=== PATIENT | male | born 1975 | race Caucasian/White ===

== ENCOUNTER 2021-04-25 16:57 | Emergency (ER) | payer OTHER ==
[~2021-04-25] VITALS: Ht 182.9 cm; Wt 99.8 kg
--- NOTE | 2021-04-25 16:57 | NUR ---
PT BIBRA FROM THE BUS STOP C/O WEAKNESS/DIZZINESS AND LOW BP. PT IS AAOX4, NOT IN RESPIRATORY DISTRESS, HOOKED TO [employer], KEPT RESTED AND COMFORTABLE. WILL CONTINUE TO MONITOR.
--- NOTE | 2021-04-25 17:11 | NUR ---
SEEN AND EXAMINED BY .
--- NOTE | 2021-04-25 17:15 | NUR ---
PT IV LINE ESTABLISHED BLOOD DRAWN AND SENT TO LAB.
[2021-04-25 17:23] LABS: BASOPHILS # (AUTO) 0.1 K/uL (0.0-0.2); BASOPHILS % (AUTO) 0.7 % (0.0-2.0); EOSINOPHILS % (AUTO) 1.3 % (0.0-6.0); HEMATOCRIT 48 % (39-51); LYMPHOCYTES # (AUTO) 2.7 K/uL (0.8-4.8); LYMPHOCYTES % (AUTO) 27.4 % (20.0-44.0); MEAN CORPUSCULAR HGB CONC 34 g/dl (31.0-36.0); MEAN CORPUSCULAR VOLUME 87 fL (80-96); MONOCYTES # (AUTO) 0.4 K/uL (0.1-1.30); MONOCYTES % (AUTO) 4.2 % (2.0-12.0); NEUTROPHILS # (AUTO) 6.6 K/uL (1.8-8.9); NEUTROPHILS % (AUTO) 66.4 % (43.0-81.0); PLATELET COUNT (AUTO) 258 K/uL (150-450); RED BLOOD CELL COUNT(AUTO) 5.51 MIL/uL (4.5-6.0); WHITE BLOOD COUNT (AUTO) 9.9 K/uL (4.3-11.0)
[2021-04-25] MEDS ORDERED: IV NS 0.9% 1,000 ML BAG IV ONE (17:30)
[2021-04-25 17:31] LABS: CALCIUM, SERUM 9.4 mg/dL (8.5-10.1); CARBON DIOXIDE 18 mmol/L (21-32); CHLORIDE 105 mmol/L (98-107); CREATININE 1.3 mg/dL (0.6-1.3); GLUCOSE 172 mg/dL (74-106); POTASSIUM 3.2 mmol/L (3.5-5.1); SODIUM SERUM 141 mmol/L (136-145); UREA NITROGEN, BLOOD 12 mg/dL (7-18)
[2021-04-25 17:37] LABS: ALANINE AMINOTRANSFERASE 23 U/L (12-78); ALBUMIN 4.1 g/dL (3.4-5.0); ALKALINE PHOSPHATASE 73 U/L (46-116); ASPARTATE AMINOTRANSFERASE 15 U/L (15-37); BILIRUBIN,DIRECT 0.2 mg/dL (0.0-0.2); BILIRUBIN,TOTAL 1.1 mg/dL (0.2-1.0); TOTAL PROTEIN, SERUM 7.2 g/dL (6.4-8.2)
[2021-04-25] MEDS ORDERED: FLUO20CA42 PO (18:03)
[2021-04-25] MEDS ORDERED: RISP2TAB85 PO (18:03)
[2021-04-25] MEDS ORDERED: OXYB5TAB16 PO (18:03)
[2021-04-25] MEDS ORDERED: ROSU20TA32 PO (18:03)
--- NOTE | 2021-04-25 18:42 | NUR ---
PT ABLE TO AMBULATE WITHOUT ASSISSTANCE AND PER PT HE FEELS MUCH BETTER. ER AWARE.
--- NOTE | 2021-04-25 18:54 | NUR ---
IV removed. Catheter intact and site benign. Pressure and 4x4 applied to site. No bleeding noted. Patient discharged to home in stable condition. Written and verbal after care instructions given. Patient verbalizes understanding of instruction.
[2021-04-25 18:56] VITALS: BP 114/65
== END 2021-04-25 18:56 | disposition home or self-care (01) ==
LOC: ER 17:23
DX: I95.9 Hypotension, unspecified (principal); R00.0 Tachycardia, unspecified; F20.9 Schizophrenia, unspecified; F32.9 Major depressive disorder, single episode, unspecified; Z79.899 Other long term (current) drug therapy; Z20.822 Contact with and (suspected) exposure to COVID-19
CPT/HCPCS: 36415; 71045; 80048; 80076; 82962; 84484; 85025; 87081; 87426; 93005; 96360; 99285; C9803

== ENCOUNTER 2021-12-13 16:50 | Emergency (ER) | payer OTHER ==
[~2021-12-13] VITALS: Ht 182.9 cm; Wt 104.3 kg
[~2021-12-13 16:50] MED LIST: FLUO20CA42 PO; OXYB5TAB16 PO; RISP2TAB85 PO; ROSU20TA32 PO
--- NOTE | 2021-12-13 17:10 | NUR ---
JORJE ANTHONY "was in [employer] [place]- Got lightheaded, near syncope/dizzy". The patient is alert and oriented x4. Denies pain. In room air and denies SOB. Respiration regular and unlabored. Denies having dizziness at this time. Attached to the monitor. Warm blanket provided for comfort. Will continue to monitor the patient.
--- NOTE | 2021-12-13 17:17 | NUR ---
IV LINE IS ESTABLISHED, BLOOD SPECIMEN COLLECTED AND SENT TO THE LAB. THE LINE IS SALINE LOCKED.
[2021-12-13 17:31] LABS: BASOPHILS % (AUTO) 0.2 % (0.0-2.0); HEMATOCRIT 45 % (39-51); HEMOGLOBIN 14.7 g/dL (13.5-17.5); LYMPHOCYTES # (AUTO) 1.9 K/uL (0.8-4.8); LYMPHOCYTES % (AUTO) 14.2 % (20.0-44.0); MEAN CORPUSCULAR HGB CONC 33 g/dl (31.0-36.0); MEAN CORPUSCULAR VOLUME 86 fL (80-96); MONOCYTES # (AUTO) 0.5 K/uL (0.1-1.30); MONOCYTES % (AUTO) 3.3 % (2.0-12.0); NEUTROPHILS % (AUTO) 81.3 % (43.0-81.0); PLATELET COUNT (AUTO) 285 K/uL (150-450); RED BLOOD CELL COUNT(AUTO) 5.19 MIL/uL (4.5-6.0); WHITE BLOOD COUNT (AUTO) 13.6 K/uL (4.3-11.0)
[2021-12-13 18:04] LABS: ALANINE AMINOTRANSFERASE 32 U/L (12-78); ALBUMIN 3.8 g/dL (3.4-5.0); ALKALINE PHOSPHATASE 85 U/L (46-116); ASPARTATE AMINOTRANSFERASE 14 U/L (15-37); BILIRUBIN,DIRECT 0.3 mg/dL (0.0-0.2); BILIRUBIN,TOTAL 1.7 mg/dL (0.2-1.0); CALCIUM, SERUM 9.6 mg/dL (8.5-10.1); CARBON DIOXIDE 25 mmol/L (21-32); CHLORIDE 99 mmol/L (98-107); CREATININE 1.5 mg/dL (0.6-1.3); GLUCOSE 214 mg/dL (74-106); POTASSIUM 3.6 mmol/L (3.5-5.1); SODIUM SERUM 134 mmol/L (136-145); TOTAL PROTEIN, SERUM 7.7 g/dL (6.4-8.2); UREA NITROGEN, BLOOD 14 mg/dL (7-18)
--- NOTE | 2021-12-13 18:30 | NUR ---
URINE COLLECTED AND SENT TO LAB
[2021-12-13] MEDS ORDERED: IV NS 0.9% 500 ML BAG IV ONE (19:30)
[2021-12-13 19:51] LABS: BILIRUBIN,URINE SMALL (NEGATIVE); COLOR,URINE YELLOW (YELLOW); LEUKOCYTE ESTERASE ,URINE TRACE (NEGATIVE); NITRITE, URINE NEGATIVE (NEGATIVE); PH,URINE 6.5 (5.0-8.0); PROTEIN,URINE 100 mg/dl (NEGATIVE); UGLUCOSE NEGATIVE (NEGATIVE)
[2021-12-13 20:06] LABS: BACTERIA,URINE RARE /HPF (None Seen); HYALINE CASTS, URINE Few /LPF (None Seen); MUCUS,URINE Many /LPF (None Seen)
[2021-12-13] MEDS ORDERED: IV NS 0.9% 250 ML IV ONE (20:51)
[2021-12-13] MEDS ORDERED: IOHEXOL-350 100 ML VIAL IV ONE (20:51)
[2021-12-13] MEDS ORDERED: CT SWABBABLE VALVE TRANS SET 1 EA INFUS.SET MC ONE (20:51)
[2021-12-13] MEDS ORDERED: risperiDONE 1 MG TABLET ONE (20:57)
[2021-12-13] MEDS ORDERED: risperiDONE 0.25 MG TABLET PO ONE (21:00)
[2021-12-13] MEDS ORDERED: Magnesium 1GM/D5W 100ML PREMIX 100 ML IV ONE (21:28)
[2021-12-13] MEDS ORDERED: Magnesium 1GM/D5W 100ML PREMIX 100 ML IV SCH (21:30)
--- NOTE | 2021-12-13 22:14 | NUR ---
TROP 122 MD LEUNG NOTIFIED.
--- NOTE | 2021-12-13 22:22 | NUR ---
CALLED [facility] AND OPENED A CASE WITH NIMESH. WILL RECEIVE CALL BACK
[2021-12-13] MEDS ORDERED: ASPIRIN 325 MG TABLET PO ONE (22:30)
[2021-12-13] MEDS ORDERED: ASPIRIN 325 MG TABLET ONE (22:41)
--- NOTE | 2021-12-13 22:51 | NUR ---
COVID TEST SWABBED AND SENT TO LAB
--- NOTE | 2021-12-13 22:53 | NUR ---
ACCEPTED AT [facility] ER DR Ander NEWMAN PRN [facility] ETA [phone]
--- NOTE | 2021-12-13 23:24 | NUR ---
AMBULANCE FOR TRANSPORT AT BEDSIDE.
[2021-12-13 23:26] VITALS: BP 121/77
--- NOTE | 2021-12-13 23:26 | NUR ---
REPORT GIVEN TO RN AT [facility]
--- NOTE | 2021-12-13 23:27 | NUR ---
REPORT GIVEN TO CONNOR AT [facility]
--- NOTE | 2021-12-13 23:29 | NUR ---
PATIENT BEING TRANSFERRED VIA AMBULANCE IN STABLE CONDITION.
== END 2021-12-13 23:29 | disposition short-term general hospital (02) ==
LOC: ER 16:54
DX: E86.0 Dehydration (principal); R55 Syncope and collapse; Z20.822 Contact with and (suspected) exposure to COVID-19; R79.1 Abnormal coagulation profile; R77.8 Other specified abnormalities of plasma proteins; R94.31 Abnormal electrocardiogram [ECG] [EKG]; F20.9 Schizophrenia, unspecified; F32.A Depression, unspecified; Z79.899 Other long term (current) drug therapy
CPT/HCPCS: 36415; 71045; 71275; 80048; 80076; 80307; 81001; 83735; 84484 ×2; 85025; 85378; 87426; 93005; 96361; 96365; 99285; C9803; J3475; J7040; J7050; Q9967